=== PATIENT | female | born 1975 | race Caucasian/White ===

== ENCOUNTER 2019-10-10 22:16 | Emergency (ER) | payer OTHER, SELFPAY ==
--- NOTE | ~2019-10-10 | XR_ITS ---
EXAMINATION: XR chest 2V DATE: 10/10/2019 22:48 INDICATION: Fever and fatigue TECHNIQUE: PA and lateral views of the chest are obtained. COMPARISON: 02/07/2019 FINDINGS: The lungs are free of acute opacities. There is no pleural effusion or pneumothorax. The ca rdiomediastinal silhouette is normal. There is moderate thoracic spondylosis. IMPRESSION: 1. No acute cardiopulmonary abnormality. Reviewed, dictated and finalized at location A.
--- NOTE | 2019-10-10 22:28 | ED.CHESTPAIN ---
HPI - Chest Pain General Chief Complaint: Unspecified Stated Complaint: fever, tired, achy,muscle pain,headache,chestpain Time Seen by Provider: 10/10/19 22:28 Source: patient History of Present Illness HPI narrative: Patient arrived actually with another patient and then stated she was having chest pain. When she got back to the room she said she was having fever she is tired achy generalized muscle pains. MD complaint: chest pain ( she says she thinks her chest is hurting because her back hurts) Onset (ago): day(s) (2) Prior episodes: No Onset: during rest Pain location: substernal Severity: moderate Quality: aching and dull Relieving factors: nothing Associated symptoms: fever (100.3 yesterday) Treatment prior to arrival: none Risk Factors Coronary artery disease risk factors: diabetes Pulmonary embolism risk factors: morbid obesity Related Data On Oral Contraceptives: No Allergies Allergy/AdvReac Type Severity Reaction Status Date / Time No Known Allergies Allergy Verified 10/10/19 23:10 Review of Systems Constitutional: Constitutional: Reports body ache(s), Reports chills, Reports fatigue, Reports fever(s), Reports headache(s) and Reports malaise Cardiovascular: Cardiovascular: Denies diaphoresis, Denies rapid heart rate and Denies radiating jaw, neck or arm pain Respiratory: Respiratory: Denies dyspnea Gastrointestinal: Gastrointestinal: Denies nausea and Denies vomiting Neurologic: Reports system reviewed and no additional complaints, except as documented Psychiatric: Psychiatric: Reports no additional psychiatric complaints Endocrine: Endocrine: Reports no additional endocrine complaints Hematologic/Lymphatic: Hematologic/Lymphatic: Reports no additional hematologic/lymphatic complaints PMFSH Past Medical History Medical History (Updated 10/11/19 @ 00:39 by Jerald Mckeon MD) Peripheral neuropathy Type 2 diabetes mellitus Surgical History Surgical History (Updated 10/10/19 @ 22:49 by Jerald Mckeon MD) H/O dilation and curettage History of cholecystectomy History of hysterectomy with oophorectomy History of knee surgery Social History Social History (Updated 10/10/19 @ 22:47 by Jerald Mckeon MD) Smoking packs per day: 1 Smoking cigarettes per day: 20.0 Smoking status: Current every day smoker Tobacco type: cigarettes Gender identity (if verbalized by the patient): Female Exam Const: General: no acute distress Nutritional Appearance: well nourished and obese morbidly obese Orientation/consciousness: patient oriented x3 Other: female nurse in room during examination. HENMT: Head: normal to inspection Ears: external ears normal Face and sinus: normal facial exam Mouth: Yes lip normal Eyes: Conjunctivae: conjunctivae normal Pupils: Equal, round and reactive pupils present EOM: EOMs intact bilaterally Neck: Neck: normal visual inspection and no lymphadenopathy Chest: Chest palpation & inspection: tenderness sternum Resp: Effort & Inspection: normal respiratory effort Auscultation: clear to auscultation bilaterally Cardio: Rate: tachycardic Rhythm: regular rhythm GI: GI Palp: No abdominal tenderness Auscultation: normal bowel sounds Back/Spine/Pelvis: Cervical Spine: cervical ROM normal Thoracic/Lumbar Spine: thoraco-lumbar ROM normal Skin: General skin exam: normal color Rashes: no rashes Neuro: General: patient oriented x3, moves all extremities, no meningeal signs and no focal motor deficits Speech: normal speech Extrem: General: normal to inspection and no pedal edema Psych: Appearance: grossly normal Mental Status: mental status grossly normal Affect: normal affect Attitude: cooperative Thought content: Yes Normal thought content present Course Vital Signs Vital signs: Vital Signs Temperature 36.5 C 10/10/19 22:29 Pulse Rate 90 10/10/19 22:29 Respiratory Rate 16 10/10/19 22:29 Blood Pressure 133/80 10/10/19 22:29 Pulse Oxim
[2019-10-10 22:29] VITALS: BP 133/80; PULSE 90; RESP 16; TEMP 36.5; O2SAT 97
--- NOTE | 2019-10-10 22:29 | ECG_ITS ---
Measurements Intervals [place] Rate: 110 P: 38 [place]: 150 QRS: 43 QRSD: 86 T: 52 QT: 308 QTc: 417 Interpretive Statements SINUS TACHYCARDIA LOW QRS VOLTAGE IN PRECORDIAL LEADS BASELINE ARTIFACT- V5 ABNORMAL ECG Electronically Signed On 10-11-2019 7:23:48 CDT by Blair Kay D.O.
[2019-10-10 22:56] LABS: Basophils Absolute Auto 0.03 K/mm3 (0.00-0.10); Basophils Percent Auto 0.4 % (0.0-1.0); Hematocrit 43.1 % (35.0-49.0); Hemoglobin 15.1 g/dL (12.0-15.0); Immature Granulocyte Absolute 0.03 K/mm3 (0.00-0.00); Immature Granulocyte Percent A 0.4 % (0.0-0.0); Lymphocytes Absolute Auto 0.77 K/mm3 (1.10-4.50); Mean Corpuscular Hemoglobin 30.4 pg (27.0-31.0); Mean Corpuscular Volume 86.9 fL (78.0-102.0); Mean Platelet Volume 10.6 fl (9.2-11.8); Monocytes Absolute Auto 0.31 K/mm3 (0.10-0.90); Neutrophils Absolute Auto 6.5 K/mm3 (1.7-7.2); Neutrophils Percent Auto 85.2 % (50.0-70.0); Platelet Count Result 156 K/mm3 (150-420); Red Blood Count 4.96 M/mm3 (4.20-5.40); Red Cell Distribution Width 11.9 % (11.6-14.4); White Blood Count 7.7 K/mm3 (4.8-10.8)
[2019-10-10] MEDS: ASPIRIN 81 MG CHEWABLE TABLET 324 MG PO (23:00)
[2019-10-10 23:07] LABS: Prothrombin Time 10.2 Seconds (9.64-11.0)
[2019-10-10 23:12] VITALS: BP 133/78; PULSE 88; RESP 18
--- NOTE | 2019-10-10 23:12 | PC.NURSE ---
patient on cell phone, talking & laughing
[2019-10-10 23:14] LABS: Alanine Aminotransferase 54 U/L (14-59); Albumin Level 3.2 g/dL (3.4-5.0); Alkaline Phosphatase 117 U/L (46-116); Anion Gap 11.3 mmol/L (7-16); Aspartate Amino Transferase 36 U/L (15-37); Bilirubin,Total 0.4 mg/dL (0.00-1.00); Blood Urea Nitrogen 14 mg/dL (7-18); Calcium 8.6 mg/dL (8.5-10.1); Carbon Dioxide 30 mmol/L (21-32); Chloride 93 mmol/L (98-108); Estimated CRCL calculation 70 ml/min; Estimated Glomerular Filt Rate 56; Osmolality Calculated 287 mOsm/kg (285-295); Potassium 4.3 mmol/L (3.5-5.1); Sodium 130 mmol/L (136-145); Total Protein 7.9 g/dL (6.4-8.2)
[2019-10-10 23:15] LABS: Glucose 412 mg/dL (70-99); Troponin I < 0.02 ng/mL (0.00-0.056)
[2019-10-10] MEDS: SODIUM CHLORIDE 0.9% IV 1,000 ML 999 ML IV CONT (23:40)
[2019-10-10 23:57] LABS: Influenza Control Valid (Valid)
[2019-10-11 00:31] VITALS: BP 132/78; PULSE 92; RESP 18; TEMP 36.6
--- NOTE | 2019-10-11 00:51 | PC.NURSE ---
0000 blood glucose 388 0045 blood glucose 305
[2019-10-11 00:52] VITALS: BP 140/70; PULSE 90; RESP 18; TEMP 36.6; O2SAT 96
--- NOTE | 2019-10-11 00:54 | PC.NURSE ---
IV completed & d/c IV at 0041
[2019-10-11 05:56] LABS: Glucose Point of Care 322 (65-105)
== END 2019-10-11 00:54 | disposition home or self-care (01) ==
PROVIDERS: Emergency Provider Emergency Medicine; PCP Family Medicine
DX: J11.1 Influenza due to unidentified influenza virus with other respiratory manifestations (principal)
CPT/HCPCS: 36415; 71046; 80053; 84484; 85025; 85610; 87804; 93005; 96360; 99284; A9270; J1815; J7030

== ENCOUNTER 2021-04-01 18:55 | Emergency (ER) | payer OTHER, SELFPAY ==
--- NOTE | ~2021-04-01 | CT_ITS ---
EXAMINATION: CT brain wo con EXAM DATE: 04/01/2021 20:51 INDICATION: New headache headache w/ N/V and sensitivity to light x8 days . TECHNIQUE: Spiral CT of the head was performed without contrast. Axial, coronal and sagittal images were reviewed. The dose-length product (DLP) for this examination was 605.33 mGy-cm. The exposure w as tailored according to patient size, and iterative reconstruction (ASIR) was used as additional dos e reduction technique. There is no prior study for comparison. FINDINGS: Ventricles are mildly dilated out of proportion to the sulci, could be central atrophy but patient is young for that to be probable explanation. No obstructive hydrocephalus is suspected, no e vidence of mass along the ventricular system or low-lying cerebellar tonsils. Normal pressure hydroce phalus (clinical triad ataxia/gait disturbance, dementia, urinary incontinence) would also been usual in this age patient. Maybe congenital finding? There is no acute intraparenchymal hemorrhage. No evidence of intraparenchymal brain mass lesion. N o evidence of acute infarction. There are no extra-axial collections. There is no mass effect or mi dline shift. The orbits are unremarkable. Soft tissue is unremarkable. The visualized sinuses and mastoid air cells are well aerated. IMPRESSION: 1. No acute intracranial findings. 2. Ventricles mildly dilated out of proportion to sulci without obstructive hydrocephalus suspected. Probably incidental finding unrelated to patient's acute symptoms. Some considerations include conge nital appearance, early central atrophy or NPH. Reviewed, dictated and finalized at location A. SEALER IMPRESSION: 1. No acute intracranial findings. 2. Ventricles mildly dilated out of proportion to sulci without obstructive hy drocephalus suspected. Probably incidental finding unrelated to patient's acute symptoms. Some considerations include congenital appearance, early central atr ophy or NPH.
[2021-04-01 19:10] VITALS: BP 118/73; PULSE 77; RESP 20; TEMP 36.6; O2SAT 100
[2021-04-01 19:22] LABS: Glucose Point of Care 318 mg/dl (65-105)
--- NOTE | 2021-04-01 19:40 | ED.GENADULT ---
HPI - General Adult General Chief complaint: Unspecified Stated complaint: dr sent her over due to diabetic issues Time Seen by Provider: 04/01/21 19:40 Source: patient Mode of arrival: ambulatory Limitations: no limitations History of Present Illness HPI narrative: 46-year-old woman with a history of type 2 diabetes comes to the emergency department today at the behest of her primary care doctor after he start today and found that her glucose was severely elevated (over 400). Patient states that she has had a headache but denies any nausea, vomiting, cough or cold symptoms, fever, dysuria, abdominal pain, chest pain, syncope. she states that she is out of her metformin and her insulin and has not taken them for the last 2 weeks. Onset (ago): day(s) Location: head Radiation: non-radiation Severity: moderate Quality: dull Pain Consistency: constant Relieving factors: none Exacerbating factors: none Associated symptoms: denies other symptoms Treatments prior to arrival: none Related Data Home Medications Medication Instructions Recorded Confirmed insulin glargine [Lantus U-100 80 unit SUBCUT HS 04/01/21 04/01/21 Insulin] insulin regular human [Humulin R 20 unit SUBCUT TIDWMEAL 04/01/21 04/01/21 Regular U-100 Insuln] metformin 500 mg PO BID 04/01/21 04/01/21 Allergies Allergy/AdvReac Type Severity Reaction Status Date / Time No Known Allergies Allergy Verified 10/10/19 23:10 Review of Systems Review of Systems: All systems reviewed & are unremarkable except as noted in HPI and below Constitutional: Constitutional: Denies chills, Denies fever(s) and Reports headache(s) Comments: Fatigue Eyes: Eyes: Reports blurry vision, Denies diplopia, Denies loss of vision and Denies photophobia ENT: Denies otalgia, Denies nasal congestion, Denies nasal discharge and Denies sore throat Cardiovascular: Cardiovascular: Denies chest pain, Denies syncope and Denies leg edema Respiratory: Respiratory: Denies chest congestion, Denies cough, Denies dyspnea and Denies wheezing Gastrointestinal: Gastrointestinal: Denies abdominal pain, Reports constipation, Denies diarrhea, Denies nausea and Denies vomiting Genitourinary: Genitourinary: Denies hematuria, Denies nocturia and Denies dysuria Musculoskeletal: Musculoskeletal: Denies abnormal gait, Denies back pain, Denies arthralgias and Denies joint swelling Integumentary/Breasts: Skin/Breast: Denies lesions, Denies erythema and Denies rash Neurologic: Denies Abnormal speech present, Denies abnormal gait, Denies confusion, Denies syncope, Reports headache(s), Denies radicular pain, Denies paresthesias and Denies weakness Endocrine: Endocrine: Reports fatigue and Denies polyuria Hematologic/Lymphatic: Hematologic/Lymphatic: Denies easy bleeding and Denies easy bruising Allergic/Immunologic: Allergic/Immunologic: Denies urticaria, Denies lip swelling, Denies throat swelling and Denies tongue swelling PMFSH Past Medical History Medical History Peripheral neuropathy Type 2 diabetes mellitus Surgical History Surgical History H/O dilation and curettage History of cholecystectomy History of hysterectomy with oophorectomy History of knee surgery Social History Social History Smoking packs per day: 1 Smoking cigarettes per day: 20.0 Smoking status: Current every day smoker Tobacco type: cigarettes Gender identity (if verbalized by the patient): Female Exam Const: General: cooperative, healthy appearing, alert, awake, Physically active and acute distress mild Orientation/consciousness: patient oriented x3 Limitations: no limitations HENMT: Head: normal to inspection, normocephalic and atraumatic Ears: external ears normal, TM's normal bilaterally, EAC's normal and mastoids normal Face and sinus:
--- NOTE | 2021-04-01 19:54 | ECG_ITS ---
Measurements Intervals [place] Rate: 82 P: 39 [place]: 131 QRS: 56 QRSD: 87 T: 56 QT: 387 QTc: 454 Interpretive Statements SINUS RHYTHM BASELINE ARTIFACT- V5 NORMAL ECG Electronically Signed On 04-02-2021 7:04:22 INSTRUMENTATION TECH by Blair Kay D.O.
[2021-04-01] MEDS: SODIUM CHLORIDE 0.9% IV 1,000 ML 999 ML IV CONT (20:01)
[2021-04-01 20:29] LABS: Basophils Absolute Auto 0.06 K/mm3 (0.00-0.10); Basophils Percent Auto 0.9 % (0.0-1.0); Eosinophils Absolute Auto 0.09 K/mm3 (0.02-0.50); Eosinophils Percent Auto 1.3 % (1.0-6.0); Hemoglobin 13.1 g/dL (12.0-15.0); Immature Granulocyte Absolute 0.02 K/mm3 (0.00-0.00); Immature Granulocyte Percent A 0.3 % (0.0-0.0); Lymphocytes Absolute Auto 1.61 K/mm3 (1.10-4.50); Lymphocytes Percent Auto 23.5 % (18.0-42.0); Mean Corpuscular HGB Conc 33.6 g/dL (32.0-36.0); Mean Corpuscular Hemoglobin 30.2 pg (27.0-31.0); Mean Corpuscular Volume 89.9 fL (78.0-102.0); Monocytes Absolute Auto 0.66 K/mm3 (0.10-0.90); Monocytes Percent Auto 9.6 % (2.0-11.0); Neutrophils Absolute Auto 4.4 K/mm3 (1.7-7.2); Neutrophils Percent Auto 64.4 % (50.0-70.0); Platelet Count Result 283 K/mm3 (150-420); Red Blood Count 4.34 M/mm3 (4.20-5.40); Red Cell Distribution Width 12.2 % (11.6-14.4); White Blood Count 6.8 K/mm3 (4.8-10.8)
[2021-04-01 20:49] LABS: Lactic Acid Reflex 1.2 mmol/L (0.4-2.0)
[2021-04-01 20:52] LABS: Alanine Aminotransferase 35 U/L (14-59); Albumin Level 2.7 g/dL (3.4-5.0); Alkaline Phosphatase 108 U/L (46-116); Anion Gap 8 mmol/L (8-16); Aspartate Amino Transferase 12 U/L (15-37); Bilirubin,Total 0.2 mg/dL (0.00-1.00); Blood Urea Nitrogen 17 mg/dL (7-18); Carbon Dioxide 30 mmol/L (21-32); Chloride 100 mmol/L (98-108); Estimated CRCL calculation 72 ml/min; Estimated Glomerular Filt Rate 58; Glucose 310 mg/dL (70-99); Osmolality Calculated 299 mOsm/kg (285-295); Potassium 4.3 mmol/L (3.5-5.1); Sodium 138 mmol/L (136-145); Total Protein 7.5 g/dL (6.4-8.2)
[2021-04-01 20:53] LABS: CRP 12.3 mg/dL (0.0-0.9)
[2021-04-01 20:54] LABS: Troponin I 15.2 ng/L (0.00-60.4)
[2021-04-01 20:58] LABS: Calcium 8.8 mg/dL (8.5-10.1)
[2021-04-01 21:51] LABS: Appearance Urine Clear (Clear); Bilirubin Urine Negative (Negative); Color Urine Light Yellow (Yellow); Glucose Urine UA 3+ (Negative); Ketones Urine Negative (Negative); Leukocyte Esterase Ur Negative LEU/UL (Negative); Nitrate Urine Negative (Negative); Protein Urine Negative (Negative); Urobilinogen Urine 0.2 mg/dL (0.2-1.0)
[2021-04-01 22:02] LABS: Add Urine Microscopic? YES; Bacteria Urine 3+ /hpf; Blood Urine Trace-Intact (Negative); RBC Urine 0-2 /hpf (0-2); Squamous Epithelial Cell Urine Few /hpf (Few); WBC Urine 16-20 /hpf (0-3)
[2021-04-01 22:15] LABS: Glucose Point of Care 226 mg/dl (65-105)
[2021-04-01] MEDS: ACETAMINOPHEN 500 MG TABLET 1000 MG PO (22:42)
[2021-04-01] MEDS: INSULIN GLARGINE (*BKC) 100 UNITS/ML 80 UNITS SUB-Q (22:45)
[2021-04-01 23:18] VITALS: BP 118/71; PULSE 86; RESP 20; TEMP 36.4; O2SAT 98
[2021-04-01 23:21] VITALS: BP 118/71; PULSE 86; RESP 16; TEMP 36.3; O2SAT 98
--- NOTE | 2021-04-04 14:22 | PCDIET ---
Positive urine culture report received. Pt on Macrobid which microbiology report shows to be susceptible to.
== END 2021-04-01 23:25 | disposition home or self-care (01) ==
PROVIDERS: Emergency Provider Emergency Medicine; PCP Family Medicine
DX: E11.65 Type 2 diabetes mellitus with hyperglycemia (principal)
CPT/HCPCS: 36415; 70450; 80053; 81001; 82948; 83605; 84484; 85025; 86140; 87040; 87077; 87086; 87088; 87186; 93005; 96360; 99283; 99284; J1815; J7030

== ENCOUNTER 2021-05-07 06:50 | Outpatient (CLI) | payer OTHER, SELFPAY ==
--- NOTE | ~2021-05-07 | XR_ITS ---
XR thoracic spine 3V 05/07/2021 08:03 Indication: Mid back pain Procedure: 3 views of the thoracic spine Comparison: No prior studies for comparison. Findings: There is mild multilevel thoracic spondylosis. No fracture, subluxation or dislocation. Nor mal thoracic kyphosis. No paraspinal soft tissue abnormality. Surrounding osseous structures are unre markable. Pedicles are intact. Impression: 1: Mild thoracic spondylosis. Reviewed, dictated and finalized at location A. O EXCAVATION OPERATOR Impression: 1: Mild thoracic spondylosis.
--- NOTE | ~2021-05-07 | XR_ITS ---
XR lumbar spine 2-3V 05/07/2021 08:04 Indication: Low back pain Procedure: 2 views lumbar spine Comparison: No prior studies for comparison. Findings: Grade 1 spondylolisthesis at L5-S1. There is mild disc narrowing at L4-5. There is grade 1 spondylolisthesis at L5-S1 secondary to spondylolysis. No acute fracture is identified. There is athe rosclerosis of the aorta. Impression: 1: Mild lumbar spondylosis with grade 1 spondylolisthesis at L5-S1. Reviewed, dictated and finalized at location A. E ONE READING TEACHER Impression: 1: Mild lumbar spondylosis with grade 1 spondylolisthesis at L5-S1.
--- NOTE | ~2021-05-07 | MR_ITS ---
EXAMINATION: MR brain/brain stem wo con DATE: 05/07/2021 08:05 INDICATION: Right hemiparesis. TECHNIQUE: Magnetic resonance imaging (MRI) of the brain and brainstem was performed without intraven ous contrast. Sequences included sagittal and axial T1-weighted FSE, axial diffusion-weighted FS EPI, axial T2*-weighted GRE, axial T2-weighted FLAIR Propeller, and axial T2-weighted Propeller. Apparent diffusion coefficient (ADC) maps were created. COMPARISON: Head CT 04/01/2021 FINDINGS: There are scattered areas of nonspecific increased T2-weighted signal intensity in the cere bral white matter. There is a small area of cystic encephalomalacia in the left frontal lobe deep whi te matter. There is no intracranial hemorrhage, acute infarction, or abnormal intracranial mass lesio n. There is enlargement of the lateral and third ventricles. The orbits are normal. The paranasal sin uses are clear. There are trace bilateral mastoid effusions. IMPRESSION: 1. Mild nonspecific cerebral white matter disease. The differential diagnosis includes premature retort feeder ground bone dang small vessel ischemic disease (especially if the patient has cardiovascular risk factors), demyel inating disease such as multiple sclerosis, drug abuse, vasculitis, or reactive astrocytosis (gliosis ) secondary to nonspecific etiology. 2. Small area of cystic encephalomalacia in the left frontal lobe deep white matter. 3. Stable ventriculomegaly involving the lateral and third ventricles. Correlate clinically for homero l pressure hydrocephalus. Reviewed, dictated and finalized at location A. K REPAIR WORKER IMPRESSION: 1. Mild nonspecific cerebral white matter disease. The differential diagnosis i ncludes premature chronic small vessel ischemic disease (especially if the heather ent has cardiovascular risk factors), demyelinating disease such as multiple sc lerosis, drug abuse, vasculitis, or reactive astrocytosis (gliosis) secondary t o nonspecific etiology. 2. Small area of cystic encephalomalacia in the left frontal lobe deep white ma tter. 3. Stable ventriculomegaly involving the lateral and third ventricles. Correlat e clinically for normal pressure hydrocephalus.
[2021-05-07 07:27] LABS: Hemoglobin A1C 11.8 % (<5.7)
[2021-05-07 07:38] LABS: Alanine Aminotransferase 24 U/L (14-59); Albumin Level 2.6 g/dL (3.4-5.0); Alkaline Phosphatase 110 U/L (46-116); Anion Gap 7 mmol/L (8-16); Aspartate Amino Transferase 10 U/L (15-37); Bilirubin,Total 0.3 mg/dL (0.00-1.00); Blood Urea Nitrogen 10 mg/dL (7-18); Calcium 8.6 mg/dL (8.5-10.1); Carbon Dioxide 28 mmol/L (21-32); Chloride 95 mmol/L (98-108); Cholesterol 130 mg/dL (0-200); Estimated Glomerular Filt Rate > 60; HDL Direct 22 mg/dL (40-60); LDL Cholesterol Calculated 72 mg/dL (<130); Potassium 4.2 mmol/L (3.5-5.1); Sodium 130 mmol/L (136-145); Thyroid Stimulating Hormone 0.27 uIU/mL (0.36-3.74); Total Protein 8.1 g/dL (6.4-8.2); Triglycerides 179 mg/dL (0-150)
[2021-05-07 07:42] LABS: HIV 1 P24 AG Negative (Negative); HIV 1/2 AB Negative (Negative)
[2021-05-07 08:01] LABS: Osmolality Calculated 286 mOsm/kg (285-295)
[2021-05-07 08:08] LABS: Glucose 411 mg/dL (70-99)
[2021-05-07 10:12] LABS: Folic Acid 4.6 ng/mL (8.6->20); Vitamin B12 744 pg/mL (193-986)
== END 2021-05-07 06:51 | disposition home or self-care (01) ==
LOC: CHSIMG 06:52
PROVIDERS: PCP Physician Assistant; Visit Provider Physician Assistant
DX: M54.9 Dorsalgia, unspecified (principal); R53.1 Weakness; E03.9 Hypothyroidism, unspecified; E11.65 Type 2 diabetes mellitus with hyperglycemia; E78.5 Hyperlipidemia, unspecified; B37.0 Candidal stomatitis; K14.6 Glossodynia
CPT/HCPCS: 36415; 70551; 72072; 72100; 80053; 80061; 82607; 82746; 83036; 84443; 86703

== ENCOUNTER 2021-09-08 16:20 | Outpatient (CLI) | payer OTHER, SELFPAY | END 2021-09-08 16:21 | disposition home or self-care (01) | PROVIDERS: PCP Family Medicine | DX: E78.5 Hyperlipidemia, unspecified (principal); R52 Pain, unspecified; A53.0 Latent syphilis, unspecified as early or late | CPT/HCPCS: 99199 ==

== ENCOUNTER 2022-02-03 13:43 | Outpatient (CLI) | payer OTHER, SELFPAY ==
--- NOTE | ~2022-02-03 | XR_ITS ---
EXAMINATION: XR abdomen obstructive series DATE: 02/03/2022 14:16 INDICATION: Constipation. Vomiting. TECHNIQUE: Upright and supine views of the abdomen on 3 radiographs were obtained. COMPARISON: CT abdomen and pelvis 02/07/2019 FINDINGS: There are no dilated loops of bowel. There is a large volume of stool in the colon. No free intraperitoneal gas. There are surgical clips overlying the abdomen and pelvis. IMPRESSION: 1. Nonobstructive bowel gas pattern. Reviewed, dictated and finalized at location A.
== END 2022-02-03 13:44 | disposition home or self-care (01) ==
LOC: CHSIMG 13:46
PROVIDERS: PCP Family Medicine; Visit Provider Physician Assistant
DX: K59.00 Constipation, unspecified (principal)
CPT/HCPCS: 74019